=== PATIENT | female | born 1975 | race Caucasian/White ===

== ENCOUNTER 2017-04-08 19:10 | Emergency (ER) | payer MEDICAID ==
[2017-04-08 21:34] LABS: HCG URINE NEGATIVE (NEGATIVE)
[2017-04-08 21:36] LABS: APPEARANCE CLOUDY (CLEAR); BACTERIA MODERATE /hpf (NONE SEEN); BILIRUBIN NEGATIVE (NEGATIVE); CALCIUM OXALATE CRYSTALS 0-5 /hpf (NONE SEEN); COLOR YELLOW (YELLOW); GLUCOSE NEGATIVE (NEGATIVE); KETONE NEGATIVE (NEGATIVE); MUCUS <1+ /lpf (NONE SEEN); NITRITE NEGATIVE (NEGATIVE); PROTEIN NEGATIVE (NEGATIVE); RED CELLS - URINE RARE /hpf (0-5); UROBILINOGEN NORMAL (NORMAL); YEAST OCC /hpf (NONE SEEN)
[2017-04-08 21:37] LABS: UDS - AMPHET NEGATIVE QUAL (NEGATIVE); UDS - BARB NEGATIVE QUAL (NEGATIVE); UDS - BENZO POSITIVE QUAL (NEGATIVE); UDS - COCAINE NEGATIVE QUAL (NEGATIVE); UDS - OPIATE NEGATIVE QUAL (NEGATIVE); UDS - PCP NEGATIVE QUAL (NEGATIVE); UDS - THC NEGATIVE QUAL (NEGATIVE)
[2017-04-08 21:46] LABS: BASOPHILS 0.2 % (0-2); EOSINOPHILS 1.7 % (0-7); HEMATOCRIT 44.1 % (36.0-48.0); HEMOGLOBIN 14.5 g/dL (12-16); IMMATURE GRANULOCYTES 0.4 % (0-5); LYMPHOCYTES 19.2 % (15-50); MCH 31.5 pg (26.0-34.0); MCHC 32.9 g/dL (31.0-37.0); MCV 95.9 fL (80.0-100.0); MEAN PLATELET VOLUME 10.5 fL (7.4-10.4); MONOCYTES 9.5 % (2-11); PLATELET COUNT 256 10x3/uL (130-400); RDW 13.7 % (11.5-14.5); WBC 12.7 10x3/uL (4.8-10.8)
[2017-04-08 21:59] LABS: ALBUMIN 3.9 g/dL (3.4-5.0); ALKALINE PHOSPHATASE 107 U/L (46-116); ALT (SGPT) 35 U/L (10-68); BILIRUBIN - TOTAL 0.11 mg/dL (0.2-1.3); CALC OSMOLALITY 279 mosm/kg (275-300); CHLORIDE - SERUM 103 mmol/L (98-107); CREATININE - SERUM 0.8 mg/dL (0.6-1.3); GLUCOSE 108 mg/dL (74-106); POTASSIUM - SERUM 3.9 mmol/L (3.5-5.1); PROTEIN - SERUM 8.1 g/dL (6.4-8.2); SODIUM 139 mmol/L (136-145); UREA NITROGEN 14 mg/dL (7-18); eGFR NON AFRICAN AMERICAN 83 mL/min (90-120)
== END 2017-04-09 01:45 | disposition short-term general hospital (02) ==
LOC: D.ER 19:10
PROVIDERS: Emergency Medicine
DX: F20.89 Other schizophrenia (principal); F29 Unspecified psychosis not due to a substance or known physiological condition; F42.9 Obsessive-compulsive disorder, unspecified

== ENCOUNTER 2017-04-16 16:17 | Emergency (ER) | payer MEDICAID ==
[2017-04-16 17:04] LABS: BASOPHILS 0.2 % (0-2); EOSINOPHILS 1.8 % (0-7); HEMATOCRIT 42.5 % (36.0-48.0); HEMOGLOBIN 13.8 g/dL (12-16); LYMPHOCYTES 18.6 % (15-50); MCH 31.2 pg (26.0-34.0); MCHC 32.5 g/dL (31.0-37.0); MCV 96.2 fL (80.0-100.0); MEAN PLATELET VOLUME 10.4 fL (7.4-10.4); MONOCYTES 11.6 % (2-11); NEUTROPHILS 66.8 % (40-80); PLATELET COUNT 248 10x3/uL (130-400); RBC 4.42 10x6/uL (4.00-5.40); RDW 13.6 % (11.5-14.5); WBC 13.1 10x3/uL (4.8-10.8)
[2017-04-16 17:18] LABS: ALBUMIN 3.8 g/dL (3.4-5.0); ALKALINE PHOSPHATASE 92 U/L (46-116); ALT (SGPT) 47 U/L (10-68); BILIRUBIN - TOTAL 0.12 mg/dL (0.2-1.3); CALC OSMOLALITY 279 mosm/kg (275-300); CALCIUM 9.2 mg/dL (8.5-10.1); CARBON DIOXIDE 29.6 mmol/L (21.0-32.0); CHLORIDE - SERUM 102 mmol/L (98-107); CREATININE - SERUM 0.7 mg/dL (0.6-1.3); GLUCOSE 103 mg/dL (74-106); POTASSIUM - SERUM 4.5 mmol/L (3.5-5.1); PROTEIN - SERUM 7.2 g/dL (6.4-8.2); SODIUM 139 mmol/L (136-145); UREA NITROGEN 17 mg/dL (7-18); eGFR NON AFRICAN AMERICAN > 90 mL/min (90-120)
[2017-04-16 17:35] LABS: UDS - AMPHET NEGATIVE QUAL (NEGATIVE); UDS - BARB NEGATIVE QUAL (NEGATIVE); UDS - BENZO NEGATIVE QUAL (NEGATIVE); UDS - COCAINE NEGATIVE QUAL (NEGATIVE); UDS - OPIATE NEGATIVE QUAL (NEGATIVE); UDS - PCP NEGATIVE QUAL (NEGATIVE); UDS - THC NEGATIVE QUAL (NEGATIVE)
[2017-04-16 17:40] LABS: APPEARANCE CLEAR (CLEAR); COLOR YELLOW (YELLOW)
[2017-04-16 17:41] LABS: BILIRUBIN NEGATIVE (NEGATIVE); GLUCOSE NEGATIVE (NEGATIVE); KETONE NEGATIVE (NEGATIVE); NITRITE NEGATIVE (NEGATIVE); PROTEIN NEGATIVE (NEGATIVE); UROBILINOGEN NORMAL (NORMAL)
[2017-04-16 17:42] LABS: BACTERIA MODERATE /hpf (NONE SEEN); EPITHELIAL CELLS 0-5 /hpf (0-5); RED CELLS - URINE OCC /hpf (0-5)
== END 2017-04-16 22:12 | disposition short-term general hospital (02) ==
LOC: D.ER 16:17
PROVIDERS: Emergency Medicine
DX: F23 Brief psychotic disorder (principal); Z86.59 Personal history of other mental and behavioral disorders

== ENCOUNTER 2017-04-25 18:18 | Emergency (ER) | payer MEDICAID ==
[2017-04-25 19:10] LABS: BASOPHILS 0.2 % (0-2); EOSINOPHILS 0.6 % (0-7); HEMATOCRIT 43.7 % (36.0-48.0); HEMOGLOBIN 14.4 g/dL (12-16); IMMATURE GRANULOCYTES 0.5 % (0-5); LYMPHOCYTES 16.4 % (15-50); MCH 31.7 pg (26.0-34.0); MCV 96.3 fL (80.0-100.0); MEAN PLATELET VOLUME 10.5 fL (7.4-10.4); MONOCYTES 7.8 % (2-11); NEUTROPHILS 74.5 % (40-80); PLATELET COUNT 277 10x3/uL (130-400); RBC 4.54 10x6/uL (4.00-5.40); RDW 13.8 % (11.5-14.5); WBC 13.3 10x3/uL (4.8-10.8)
[2017-04-25 19:23] LABS: ALBUMIN 3.9 g/dL (3.4-5.0); ALKALINE PHOSPHATASE 94 U/L (46-116); ALT (SGPT) 46 U/L (10-68); BILIRUBIN - TOTAL 0.22 mg/dL (0.2-1.3); CALC OSMOLALITY 282 mosm/kg (275-300); CALCIUM 8.9 mg/dL (8.5-10.1); CARBON DIOXIDE 25.4 mmol/L (21.0-32.0); CHLORIDE - SERUM 103 mmol/L (98-107); CREATININE - SERUM 0.7 mg/dL (0.6-1.3); GLUCOSE 110 mg/dL (74-106); POTASSIUM - SERUM 4.1 mmol/L (3.5-5.1); PROTEIN - SERUM 7.9 g/dL (6.4-8.2); SODIUM 141 mmol/L (136-145); UREA NITROGEN 15 mg/dL (7-18); eGFR NON AFRICAN AMERICAN > 90 mL/min (90-120)
[2017-04-25 19:32] LABS: THYROID STIMULATING HORMONE 1.13 uIU/mL (0.36-3.74)
[2017-04-25 19:55] LABS: APPEARANCE HAZY (CLEAR); BILIRUBIN NEGATIVE (NEGATIVE); COLOR YELLOW (YELLOW); GLUCOSE NEGATIVE (NEGATIVE); KETONE NEGATIVE (NEGATIVE); NITRITE NEGATIVE (NEGATIVE); PROTEIN NEGATIVE (NEGATIVE); UROBILINOGEN NORMAL (NORMAL)
[2017-04-25 19:56] LABS: HCG URINE NEGATIVE (NEGATIVE)
[2017-04-25 19:58] LABS: UDS - AMPHET NEGATIVE QUAL (NEGATIVE); UDS - BARB NEGATIVE QUAL (NEGATIVE); UDS - BENZO NEGATIVE QUAL (NEGATIVE); UDS - COCAINE NEGATIVE QUAL (NEGATIVE); UDS - OPIATE NEGATIVE QUAL (NEGATIVE); UDS - PCP NEGATIVE QUAL (NEGATIVE); UDS - THC NEGATIVE QUAL (NEGATIVE)
== END 2017-04-26 00:14 ==
LOC: D.ER 18:18
PROVIDERS: Family Medicine
DX: F23 Brief psychotic disorder (principal); Z86.59 Personal history of other mental and behavioral disorders

== ENCOUNTER 2017-06-06 13:34 | Emergency (ER) | payer MEDICAID ==
[2017-06-06 14:15] LABS: BASOPHILS 0.2 % (0-2); EOSINOPHILS 1.1 % (0-7); HEMATOCRIT 42.3 % (36.0-48.0); IMMATURE GRANULOCYTES 0.5 % (0-5); LYMPHOCYTES 21.4 % (15-50); MCH 31.7 pg (26.0-34.0); MCHC 33.1 g/dL (31.0-37.0); MCV 95.7 fL (80.0-100.0); MEAN PLATELET VOLUME 10.5 fL (7.4-10.4); MONOCYTES 15.1 % (2-11); NEUTROPHILS 61.7 % (40-80); PLATELET COUNT 211 10x3/uL (130-400); RBC 4.42 10x6/uL (4.00-5.40); RDW 13.9 % (11.5-14.5)
[2017-06-06 14:28] LABS: HCG URINE NEGATIVE (NEGATIVE)
[2017-06-06 14:32] LABS: UDS - AMPHET NEGATIVE QUAL (NEGATIVE); UDS - BARB NEGATIVE QUAL (NEGATIVE); UDS - BENZO NEGATIVE QUAL (NEGATIVE); UDS - COCAINE NEGATIVE QUAL (NEGATIVE); UDS - OPIATE NEGATIVE QUAL (NEGATIVE); UDS - PCP NEGATIVE QUAL (NEGATIVE); UDS - THC NEGATIVE QUAL (NEGATIVE)
[2017-06-06 14:35] LABS: APPEARANCE CLEAR (CLEAR); BILIRUBIN NEGATIVE (NEGATIVE); COLOR YELLOW (YELLOW); GLUCOSE NEGATIVE (NEGATIVE); KETONE NEGATIVE (NEGATIVE); NITRITE NEGATIVE (NEGATIVE); PROTEIN NEGATIVE (NEGATIVE); UROBILINOGEN NORMAL (NORMAL)
[2017-06-06 14:40] LABS: ALBUMIN 3.6 g/dL (3.4-5.0); ALKALINE PHOSPHATASE 83 U/L (46-116); ALT (SGPT) 34 U/L (10-68); BILIRUBIN - TOTAL 0.21 mg/dL (0.2-1.3); CALC OSMOLALITY 275 mosm/kg (275-300); CALCIUM 8.5 mg/dL (8.5-10.1); CARBON DIOXIDE 25.1 mmol/L (21.0-32.0); CHLORIDE - SERUM 103 mmol/L (98-107); CREATININE - SERUM 0.8 mg/dL (0.6-1.3); GLUCOSE 104 mg/dL (74-106); PROTEIN - SERUM 7.2 g/dL (6.4-8.2); SODIUM 138 mmol/L (136-145); UREA NITROGEN 13 mg/dL (7-18); eGFR NON AFRICAN AMERICAN 83 mL/min (90-120)
== END 2017-06-06 16:34 | disposition home or self-care (01) ==
LOC: D.ER 13:34
PROVIDERS: Family Medicine
DX: F20.89 Other schizophrenia (principal)

== ENCOUNTER 2017-06-27 14:52 | Emergency (ER) | payer MEDICAID ==
[2017-06-27 16:36] LABS: BASOPHILS 0.1 % (0-2); EOSINOPHILS 0.6 % (0-7); HEMATOCRIT 44.7 % (36.0-48.0); HEMOGLOBIN 14.9 g/dL (12-16); IMMATURE GRANULOCYTES 0.3 % (0-5); LYMPHOCYTES 19.5 % (15-50); MCH 31.2 pg (26.0-34.0); MCHC 33.3 g/dL (31.0-37.0); MCV 93.7 fL (80.0-100.0); MEAN PLATELET VOLUME 10.2 fL (7.4-10.4); MONOCYTES 12.8 % (2-11); NEUTROPHILS 66.7 % (40-80); RBC 4.77 10x6/uL (4.00-5.40); RDW 13.6 % (11.5-14.5); WBC 9.4 10x3/uL (4.8-10.8)
[2017-06-27 16:37] LABS: PLATELET COUNT 299 10x3/uL (130-400)
[2017-06-27 17:01] LABS: ALKALINE PHOSPHATASE 92 U/L (46-116); ALT (SGPT) 45 U/L (10-68); BILIRUBIN - TOTAL 0.16 mg/dL (0.2-1.3); CALC OSMOLALITY 278 mosm/kg (275-300); CALCIUM 9.6 mg/dL (8.5-10.1); CARBON DIOXIDE 24.3 mmol/L (21.0-32.0); CHLORIDE - SERUM 102 mmol/L (98-107); CREATININE - SERUM 0.8 mg/dL (0.6-1.3); GLUCOSE 110 mg/dL (74-106); POTASSIUM - SERUM 4.5 mmol/L (3.5-5.1); PROTEIN - SERUM 7.6 g/dL (6.4-8.2); SODIUM 139 mmol/L (136-145); UREA NITROGEN 13 mg/dL (7-18); eGFR NON AFRICAN AMERICAN 83 mL/min (90-120)
[2017-06-27 19:22] LABS: UDS - AMPHET NEGATIVE QUAL (NEGATIVE); UDS - BARB NEGATIVE QUAL (NEGATIVE); UDS - BENZO POSITIVE QUAL (NEGATIVE); UDS - COCAINE NEGATIVE QUAL (NEGATIVE); UDS - OPIATE NEGATIVE QUAL (NEGATIVE); UDS - PCP NEGATIVE QUAL (NEGATIVE); UDS - THC NEGATIVE QUAL (NEGATIVE)
[2017-06-27 19:31] LABS: APPEARANCE CLOUDY (CLEAR); BILIRUBIN NEGATIVE (NEGATIVE); COLOR DK YELLOW (YELLOW); GLUCOSE NEGATIVE (NEGATIVE); KETONE NEGATIVE (NEGATIVE); NITRITE NEGATIVE (NEGATIVE); PROTEIN NEGATIVE (NEGATIVE); UROBILINOGEN NORMAL (NORMAL)
[2017-06-27 19:38] LABS: BACTERIA MODERATE /hpf (NONE SEEN); CALCIUM OXALATE CRYSTALS 25-50 /hpf (NONE SEEN); EPITHELIAL CELLS 0-5 /hpf (0-5); GRANULAR CAST 0-5 /lpf (NONE SEEN); HYALINE CAST OCC /lpf (NONE SEEN); MUCUS <1+ /lpf (NONE SEEN); RED CELLS - URINE OCC /hpf (0-5); YEAST >1+ WITH HYPHAE /hpf (NONE SEEN)
== END 2017-06-27 20:13 | disposition home or self-care (01) ==
LOC: D.ER 14:52
PROVIDERS: Nurse Practitioner Family
DX: N39.0 Urinary tract infection, site not specified (principal); Z86.59 Personal history of other mental and behavioral disorders; B37.9 Candidiasis, unspecified

== ENCOUNTER 2017-09-05 16:14 | Emergency (ER) | payer MEDICARE ==
[2017-09-05 16:38] LABS: BASOPHILS 0.1 % (0-2); HEMATOCRIT 44.2 % (36.0-48.0); HEMOGLOBIN 14.8 g/dL (12-16); IMMATURE GRANULOCYTES 0.4 % (0-5); LYMPHOCYTES 13.9 % (15-50); MCH 31.7 pg (26.0-34.0); MCHC 33.5 g/dL (31.0-37.0); MCV 94.6 fL (80.0-100.0); MEAN PLATELET VOLUME 10.2 fL (7.4-10.4); MONOCYTES 10.6 % (2-11); PLATELET COUNT 293 10x3/uL (130-400); RBC 4.67 10x6/uL (4.00-5.40); RDW 13.2 % (11.5-14.5); WBC 15.7 10x3/uL (4.8-10.8)
[2017-09-05 17:00] LABS: ALBUMIN 3.8 g/dL (3.4-5.0); ALKALINE PHOSPHATASE 82 U/L (46-116); ALT (SGPT) 28 U/L (10-68); BILIRUBIN - TOTAL 0.17 mg/dL (0.2-1.3); CALC OSMOLALITY 277 mosm/kg (275-300); CALCIUM 8.7 mg/dL (8.5-10.1); CARBON DIOXIDE 25.9 mmol/L (21.0-32.0); CHLORIDE - SERUM 102 mmol/L (98-107); CREATININE - SERUM 0.8 mg/dL (0.6-1.3); GLUCOSE 106 mg/dL (74-106); POTASSIUM - SERUM 4.6 mmol/L (3.5-5.1); PROTEIN - SERUM 7.9 g/dL (6.4-8.2); SODIUM 138 mmol/L (136-145); UREA NITROGEN 17 mg/dL (7-18); eGFR NON AFRICAN AMERICAN 82 mL/min (90-120)
[2017-09-05 17:45] LABS: APPEARANCE HAZY (CLEAR); BILIRUBIN NEGATIVE (NEGATIVE); COLOR YELLOW (YELLOW); GLUCOSE NEGATIVE (NEGATIVE); KETONE NEGATIVE (NEGATIVE); NITRITE NEGATIVE (NEGATIVE); PH 5.5 (5.0-6.0); PROTEIN NEGATIVE (NEGATIVE); SPECIFIC GRAVITY 1.015 (1.005-1.020); UROBILINOGEN NORMAL (NORMAL)
[2017-09-05 18:48] LABS: UDS - AMPHET NEGATIVE QUAL (NEGATIVE); UDS - BARB NEGATIVE QUAL (NEGATIVE); UDS - BENZO NEGATIVE QUAL (NEGATIVE); UDS - COCAINE NEGATIVE QUAL (NEGATIVE); UDS - OPIATE NEGATIVE QUAL (NEGATIVE); UDS - PCP NEGATIVE QUAL (NEGATIVE); UDS - THC NEGATIVE QUAL (NEGATIVE)
== END 2017-09-06 00:52 | disposition home or self-care (01) ==
LOC: D.ER 16:14
PROVIDERS: Emergency Medicine
DX: F23 Brief psychotic disorder (principal); F20.89 Other schizophrenia; Z86.59 Personal history of other mental and behavioral disorders

== ENCOUNTER 2019-02-20 07:13 | Day surgery (SDC) | payer MEDICARE, OTHER ==
[2019-02-17 11:19] LABS: BASOPHILS 0.1 % (0-2); EOSINOPHILS 1.2 % (0-7); HEMATOCRIT 38.5 % (36.0-48.0); HEMOGLOBIN 12.9 g/dL (12-16); IMMATURE GRANULOCYTES 0.4 % (0-5); LYMPHOCYTES 16.2 % (15-50); MCH 30.4 pg (26.0-34.0); MCHC 33.5 g/dL (31.0-37.0); MCV 90.8 fL (80.0-100.0); MONOCYTES 9.8 % (2-11); NEUTROPHILS 72.3 % (40-80); PLATELET COUNT 266 10x3/uL (130-400); RBC 4.24 10x6/uL (4.00-5.40); RDW 14.5 % (11.5-14.5); WBC 14.8 10x3/uL (4.8-10.8)
[~2019-02-20] VITALS: Ht 167.6 cm; Wt 135.2 kg
[~2019-02-20 07:13] MED LIST: ASCORBIC ACID500 MG PO; ATIVAN0.5 MG PO; BENZTROPINE MESY1 MG PO; BETAMETHASONE EX; BUSPAR 15 MG TA15 MG PO; CLARITIN 10 MG10 MG PO; CLOZARIL100 MG PO; GAVILAX510 GM PO; LOPRESSOR25 MG PO; MELATONIN 3 MG1 TAB PO; MULTI-DAY VITAM1 TAB PO; VESICARE10 MG PO; VITAMIN B-12500 MCG PO; ZOLOFT100 MG PO
[2019-02-20 08:34] VITALS: BP 115/61; Ht 167.6 cm; Wt 135.2 kg
[2019-02-20 08:49] LABS: HCG URINE NEGATIVE (NEGATIVE)
--- NOTE | 2019-02-23 17:17 | OP ---
PATIENT NAME: BELKIS DURAN MEDICAL RECORD: [id number] :71 LOCATION:[facility] ADMISSION DATE: SURGEON: ELAINE JAMES MD DATE OF OPERATION: 02/20/2019 PREOPERATIVE DIAGNOSES: 1. Dysfunctional uterine bleeding. 2. Mental retardation. POSTOPERATIVE DIAGNOSES: 1. Dysfunctional uterine bleeding. 2. Mental retardation. PROCEDURE: 1. Exam under anesthesia. 2. Dilation and curettage. SURGEON: Elaine James MD ANESTHESIOLOGIST: Dr. Vilchis. ANESTHESIA: General. FINDINGS: Narrow introitus with an intact hymenal ring. The cervix is nulliparous in appearance with good apical support, unremarkable vaginal mucosa. Uterus sounded to 6-7 cm. SPECIMENS REMOVED: Endometrial curettings. SPECIMEN DISPOSITION: Pathology. ESTIMATED BLOOD LOSS: Minimal. FLUIDS: 800 cc lactated Ringer's. URINE OUTPUT: Quantity sufficient void prior to this procedure. COMPLICATIONS: None. DRAINS: None. INDICATIONS: The patient is a 43-year-old female with dysfunctional uterine bleeding. The patient has gone without a cycle for 5 years and begins to have heavy irregular cycles recently. The patient was unable to be examined in the office due to discomforts. The patient was consented for dilation and curettage. DESCRIPTION OF PROCEDURE: After informed consent was assured, the patient was taken to the operating room where anesthetic was obtained. The patient was now prepped and draped. A standard speculum was unable to be placed and a narrow Sabino was now placed with visualization of the cervix. The cervix was grasped with a single tooth tenaculum and serially dilated to accommodate a #2 curette. This curette was passed easily to the fundus and with pressure applied against the uterine wall. Upon withdrawing the instrument, a good cry was obtained throughout. Tissue was returned and sent to pathology. Single tooth OPERATIVE REPORT [id number] BELKIS DURAN tenaculum was removed from the cervix with adequate hemostasis noted. There was some bleeding at the posterior fourchette and this was controlled with silver nitrate. Sponge, lap, and needle counts were correct times 2. The patient went to the recovery area in stable condition. TRANSINT:[id number] Voice Confirmation ID: [id number] DOCUMENT ID: [id number] ELAINE JAMES MD at 8893 CC: [id number] DICTATION DATE: 02/20/19 1115 THEATRICAL TROUPER: 02/20/19 1214 [facility] [place] 02/20/19 [place] [id number] [place] [id number]
== END 2019-02-20 13:45 | disposition home or self-care (01) ==
LOC: D.OPS 07:13 → D.PAN 09:30 → D.OPS 09:30 → D.PAN 10:00 → D.OPS 13:45
PROVIDERS: ATTEND Obstetrics & Gynecology
DX: N93.8 Other specified abnormal uterine and vaginal bleeding (principal); F79 Unspecified intellectual disabilities

== ENCOUNTER → 2019-10-02 08:08 | Day surgery (SDC) | payer MEDICARE, OTHER ==
[2019-02-20 08:34] VITALS: Ht 167.6 cm; Wt 131.5 kg
[2019-09-28 15:04] LABS: BASOPHILS 0.2 % (0-2); EOSINOPHILS 1.3 % (0-7); HEMATOCRIT 40.9 % (36.0-48.0); HEMOGLOBIN 13.2 g/dL (12-16); IMMATURE GRANULOCYTES 0.5 % (0-5); LYMPHOCYTES 23.9 % (15-50); MCH 29.7 pg (26.0-34.0); MCHC 32.3 g/dL (31.0-37.0); MCV 92.1 fL (80.0-100.0); MEAN PLATELET VOLUME 9.6 fL (7.4-10.4); MONOCYTES 7.7 % (2-11); NEUTROPHILS 66.4 % (40-80); RBC 4.44 10x6/uL (4.00-5.40); RDW 14.4 % (11.5-14.5); WBC 13.4 10x3/uL (4.8-10.8)
[2019-09-28 15:05] LABS: PLATELET COUNT 321 10x3/uL (130-400)
[~2019-10-02] VITALS: Ht 167.6 cm; Wt 131.5 kg
[~2019-10-02 08:08] MED LIST changes: +MACRODANTIN100 MG PO; +OXYBUTYNIN CHLOR5 M1 PO; +OXYBUTYNIN CHLOR5 MG PO; +TOPAMAX50 MG PO
--- NOTE | 2019-10-02 09:01 | NUR ---
0850 SPOKE WITH PT REGARDING HER ELEVATED WBC ON 09/27 OF 13.4. PT STATES SHE HAS NOT HEARD FROM THE DOCTOR'S OFFICE REGARDING THIS LAB RESULT. PT DOES NOT KNOW OF ANY ILLNESS EXCEPT A PRODUCTIVE COUGH AND SLEEPING 14 HOURS A DAY [address] JAMES OF ELEVATED WBC AND PT'S SYMPTOMS. DR JAMES STATED TO CANCEL TODAY'S SURGERY AND RESCHEDULE FOR NEXT WEEK. OFFICE CALLED. NO ANSWER. LEFT MESSAGE FOR PT TO BE RESCHEDULED. 0908 COMMUNICATED WITH PT ABOUT SURGERY BEING CANCELLED AND RESCHEDULED. RECOMMENDED THAT PT FOLLOWUP WITH PCP FOR FURTHER EVALUATION.
--- NOTE | 2019-10-02 09:19 | NUR ---
901 PT NOW REPORTS THAT SHE HAS HAD SOME BURNING ON URINATION. PT STATES SHE WILL FOLLOWUP WITH CHUCK ROBB TODAY.
== END | disposition home or self-care (01) ==
LOC: D.OPS 08-28 07:00 → D.PAN 08-28 07:00 → D.OPS 07:00
PROVIDERS: ATTEND Obstetrics & Gynecology
DX: F60.5 Obsessive-compulsive personality disorder (principal); F20.9 Schizophrenia, unspecified; N85.00 Endometrial hyperplasia, unspecified; Z53.9 Procedure and treatment not carried out, unspecified reason

== ENCOUNTER 2019-10-09 09:03 | Day surgery (SDC) | payer MEDICARE, OTHER ==
[2019-10-06 10:40] LABS: BASOPHILS 0.2 % (0-2); EOSINOPHILS 1.6 % (0-7); HEMOGLOBIN 13.3 g/dL (12-16); IMMATURE GRANULOCYTES 0.7 % (0-5); LYMPHOCYTES 17.3 % (15-50); MCH 29.7 pg (26.0-34.0); MCHC 31.7 g/dL (31.0-37.0); MCV 93.8 fL (80.0-100.0); MEAN PLATELET VOLUME 9.7 fL (7.4-10.4); MONOCYTES 8.7 % (2-11); NEUTROPHILS 71.5 % (40-80); PLATELET COUNT 352 10x3/uL (130-400); RBC 4.48 10x6/uL (4.00-5.40); RDW 14.4 % (11.5-14.5); WBC 12.7 10x3/uL (4.8-10.8)
[~2019-10-09] VITALS: Ht 167.6 cm; Wt 131.5 kg
--- NOTE | ~2019-10-09 | OP ---
PATIENT NAME: BELKIS DURAN MEDICAL RECORD: [id number] :71 LOCATION:[facility] ADMISSION DATE: SURGEON: WALTER JAMES MD DATE OF OPERATION: 10/09/2019 DATE OF SERVICE: 10/09/2019 PREOPERATIVE DIAGNOSIS: History of endometrial hyperplasia. POSTOPERATIVE DIAGNOSIS: History of endometrial hyperplasia. PROCEDURE: Hysteroscopy with dilation and curettage. SURGEON: Walter James MD SENIOR MANAGER ASSET PROTECTION: Bro Slater. ANESTHESIOLOGIST: Dr. Vilchis. ANESTHESIA: General. FINDINGS: A thin endometrium with unremarkable ostia. Minimal tissue at time of curettage. SPECIMENS REMOVED: Endometrial curettings. SPECIMEN DISPOSITION: Pathology. ESTIMATED BLOOD LOSS: Minimal. FLUIDS: 400 cc lactated Ringer's. URINE OUTPUT: Quantity sufficient void prior to the procedure. COMPLICATIONS: None. DRAINS: None. INDICATIONS: The patient is minimally restricted 44-year-old female with a history of dysfunctional uterine bleeding and endometrial hyperplasia. The patient is unable to tolerate endometrial biopsy in clinic and is consented for dilation and curettage in the operating room. DESCRIPTION OF PROCEDURE: After informed consent was assured, the patient was taken to the operating room where anesthetic was obtained. The patient was placed in Yellofin stirrups and prepped and draped in the usual sterile fashion. A speculum was introduced in the vagina and the cervix grasped with a single tooth tenaculum. The cervix was now serially dilated to accommodate a diagnostic hysteroscope. The hysteroscope was passed gently to the fundus with good visualization of the endometrial cavity both anteriorly and posteriorly. Both ostia are visualized easily. There were no masses or irregularities to the lining. The hysteroscopy was now discontinued and the cervix further dilated to accommodate a #2 sharp curette. This curette was passed easily to the fundus and with pressure applied against the uterine wall as it was extracted, good cry was obtained throughout. The endometrial tissues removed are passed off the OPERATIVE REPORT [id number] ROGERBELKIS Mckeon field and sent to pathology. The procedure was now discontinued. The single tooth tenaculum, which was used to hold the cervix during this procedure was released. Adequate hemostasis has been achieved. The patient was awakened and went to the recovery room in stable condition. Sponge, lap, needle counts were correct times 2. TRANSINT:[id number] Voice Confirmation ID: [id number] DOCUMENT ID: [id number] WALTER JAMES MD CC: [id number] DICTATION DATE: 10/19/19905 RN X RAY: 10/19/19 1102 [facility] 10/09/19 [place] [id number] [place] [id number]
[~2019-10-09 09:03] MED LIST changes: -OXYBUTYNIN CHLOR5 MG PO
[2019-10-09] MEDS ORDERED: OXYBUTYNIN CHLOR5 MG PO (09:21)
[2019-10-09 09:40] VITALS: BP 126/74; Ht 167.6 cm; Wt 131.5 kg
--- NOTE | 2019-10-09 10:06 | NUR ---
DR FREGOSO NOTIFIED AND REVIEWED PT'S BEHAVIOR AND ASSESSMENT RESULTS. PT IS A LOW RISK. RESOURCES GIVEN AND SHE VERBALIZES UNDERSTANDING.
[2019-10-09 12:14] LABS: HCG URINE NEGATIVE (NEGATIVE)
== END 2019-10-09 17:00 | disposition home or self-care (01) ==
LOC: D.PAN 09:03 → D.OPS 12:30 → D.PAN 12:30
PROVIDERS: ATTEND Obstetrics & Gynecology
DX: N85.00 Endometrial hyperplasia, unspecified (principal); F71 Moderate intellectual disabilities

== ENCOUNTER 2020-02-16 13:16 | Emergency (ER) | payer MEDICARE, OTHER ==
[~2020-02-16] VITALS: Ht 167.6 cm; Wt 133.2 kg
[~2020-02-16 13:16] MED LIST changes: +OXYBUTYNIN CHLOR5 MG PO
[2020-02-16 13:21] VITALS: Ht 167.6 cm; Wt 133.2 kg
[2020-02-16] MEDS ORDERED: PROVERA10 MG PO (13:24)
[2020-02-16 14:05] LABS: UDS - AMPHET NEGATIVE QUAL (NEGATIVE); UDS - BARB NEGATIVE QUAL (NEGATIVE); UDS - BENZO NEGATIVE QUAL (NEGATIVE); UDS - COCAINE NEGATIVE QUAL (NEGATIVE); UDS - OPIATE NEGATIVE QUAL (NEGATIVE); UDS - PCP NEGATIVE QUAL (NEGATIVE); UDS - THC NEGATIVE QUAL (NEGATIVE)
[2020-02-16 14:42] LABS: BASOPHILS 0.2 % (0-2); EOSINOPHILS 1.5 % (0-7); HEMATOCRIT 42.4 % (36.0-48.0); HEMOGLOBIN 13.8 g/dL (12-16); IMMATURE GRANULOCYTES 0.7 % (0-5); LYMPHOCYTES 18.6 % (15-50); MCH 30.2 pg (26.0-34.0); MCHC 32.5 g/dL (31.0-37.0); MCV 92.8 fL (80.0-100.0); MEAN PLATELET VOLUME 9.5 fL (7.4-10.4); PLATELET COUNT 316 10x3/uL (130-400); RBC 4.57 10x6/uL (4.00-5.40); RDW 14.5 % (11.5-14.5); WBC 16.2 10x3/uL (4.8-10.8)
[2020-02-16 14:44] LABS: BILIRUBIN NEGATIVE (NEGATIVE); KETONE NEGATIVE (NEGATIVE); NITRITE NEGATIVE (NEGATIVE); UROBILINOGEN NORMAL mg/dL (< 2)
[2020-02-16 14:46] LABS: BACTERIA MODERATE /HPF (NONE SEEN); EPITHELIAL CELLS 0-5 /hpf (0-5); WHITE CELLS - URINE 0-5 HPF (0-4)
[2020-02-16 14:52] LABS: CALC OSMOLALITY 273 mosm/kg (275-300); CALCIUM 8.4 mg/dL (8.5-10.1); CARBON DIOXIDE 27.7 mmol/L (21.0-32.0); CHLORIDE - SERUM 104 mmol/L (98-107); CREATININE - SERUM 0.7 mg/dL (0.6-1.3); GLUCOSE 85 mg/dL (74-106); SODIUM 137 mmol/L (136-145); UREA NITROGEN 14 mg/dL (7-18); eGFR NON AFRICAN AMERICAN > 90 mL/min (90-120)
[2020-02-16 14:58] LABS: ALBUMIN 3.7 g/dL (3.4-5.0); ALKALINE PHOSPHATASE 80 U/L (30-120); ALT (SGPT) 24 U/L (10-68); MAGNESIUM - SERUM 2.2 mg/dL (1.8-2.4); PROTEIN - SERUM 7.5 g/dL (6.4-8.2)
[2020-02-16] MEDS ORDERED: MACROBID100 MG PO (16:31)
[2020-02-17 06:38] VITALS: BP 130/81
== END 2020-02-17 06:38 ==
LOC: D.ER 13:16
PROVIDERS: Family Medicine
DX: F20.9 Schizophrenia, unspecified (principal); R46.89 Other symptoms and signs involving appearance and behavior; R44.0 Auditory hallucinations; N39.0 Urinary tract infection, site not specified; R44.1 Visual hallucinations; I10 Essential (primary) hypertension